=== PATIENT | male | born 1975 | race Caucasian/White ===

== ENCOUNTER 2024-03-28 16:41 | Inpatient (IN) | payer OTHER ==
[2024-03-28 17:36] VITALS: BMI 28.7
[2024-03-28] MEDS ORDERED: ONDANSETRON *ODT* 4 MG TABLET SL PRN (20:02)
[2024-03-28] MEDS ORDERED: POLYETHYLENE GLYCOL (HEALTHYLAX) 3350 17 GM PACKET PO PRN (20:02)
[2024-03-28] MEDS ORDERED: NALOXONE (NARCAN) HCL 4 MG/0.1 ML SPRAY NS PRN (20:02)
[2024-03-28] MEDS ORDERED: DICYCLOMINE HCL 10 MG CAPSULE PO PRN (20:02)
[2024-03-28] MEDS ORDERED: guaiFENesin 600 MG TABLET.ER (FP) PO PRN (20:02)
[2024-03-28] MEDS ORDERED: BENZONATATE 200 MG CAPSULE PO PRN (20:02)
[2024-03-28] MEDS ORDERED: BISMUTH SUBSALICYLATE 524 MG/30 ML PO PRN (20:02)
[2024-03-28] MEDS ORDERED: BENZOCAINE/MENTHOL (CHLORASEPTIC ) LOZENGE MM PRN (20:02)
[2024-03-28] MEDS ORDERED: MAG HYDROX/AL HYDROX/SIMETH 30 ML UNIT-DOSE CUP PO PRN (20:02)
[2024-03-28] MEDS ORDERED: NALOXONE HCL 0.4 MG/ML VIAL IM PRN (20:02)
[2024-03-28] MEDS ORDERED: ACETAMINOPHEN 325 MG TABLET (FP) PO PRN (20:02)
[2024-03-28] MEDS ORDERED: MAGNESIUM HYDROX 2400MG/30ML ORAL SUSPENSION 30 ML CUP PO PRN (20:02)
[2024-03-28] MEDS ORDERED: IBUPROFEN 400 MG TABLET (FP) PO PRN (20:02)
[2024-03-28] MEDS: diazePAM 5 MG TABLET PO SCH (21:19)
[2024-03-28] MEDS: methaDONE HCL 10 MG TABLET PO ONE (21:48)
[2024-03-28] MEDS: THIAMINE 100 MG TABLET PO SCH (22:33)
[2024-03-28] MEDS: MELATONIN 5 MG TABLETS PO SCH (22:33)
[2024-03-29] MEDS ORDERED: methaDONE HCL 10 MG TABLET (FOR DETOX USE ONLY) PO ONE (10:00)
[2024-03-29] MEDS: methaDONE 40 MG, methaDONE 10 MG PO ONE (10:01)
[2024-03-29] MEDS: PRENATAL VITAMINS W/ FOLIC ACID TABLET (FP) PO SCH (10:02)
[2024-03-29] MEDS: METHOCARBAMOL 500 MG TABLET PO PRN (10:06)
[2024-03-29 10:43] LABS: HEMATOCRIT 33.9 % (35.4-49); HEMOGLOBIN 11.7 GM/dL (11.7-16.9); MCHC 34.5 g/dl (32.0-35.9); MEAN CELL VOLUME 95.5 fl (80-96); PLATELET COUNT 264 10^3/uL (134-434); RBC 3.56 M/mm3 (4.00-5.60); RDW 13.9 % (11.9-15.9); WHITE BLOOD COUNT 5.9 K/mm3 (4.0-10.0)
[2024-03-29 10:45] LABS: CHLORIDE 108 mmol/L (98-107); POTASSIUM 3.6 mmol/L (3.5-5.1); SODIUM 143 mmol/L (136-145)
[2024-03-29 10:49] LABS: CALCIUM 8.2 mg/dL (8.5-10.1)
[2024-03-29 10:51] LABS: ALBUMIN 2.6 g/dl (3.4-5.0); ANION GAP 4 mmol/L (4-13); BLOOD UREA NITROGEN 14.5 mg/dL (7-18); CO2 31 mmol/L (21-32); GLUCOSE,RANDOM 85 mg/dL (74-106)
[2024-03-29 10:52] LABS: SGPT/ALT 13 U/L (13-61)
[2024-03-29 10:54] LABS: CREATININE 0.8 mg/dL (0.55-1.3)
[2024-03-29 10:55] LABS: TOT PROT 6.3 g/dl (6.4-8.2)
[2024-03-29 10:56] LABS: ALK PHOS 59 U/L (45-117)
[2024-03-29 10:58] LABS: BILIRUBIN,TOTAL 0.2 mg/dL (0.2-1)
[2024-03-29 11:03] LABS: SGOT/AST 12 U/L (15-37)
[2024-03-29] MEDS: LACTULOSE 20 GM/30 ML UDC (FOR ORAL USE ONLY) PO SCH (15:51)
[2024-03-29] MEDS: IBUPROFEN 600 MG TABLET (FP) PO PRN (22:05)
[2024-03-30] MEDS: diazePAM 5 MG TABLET PO SCH (06:19)
[2024-03-30] MEDS: methaDONE 40 MG, methaDONE 20 MG PO ONE (09:29)
[2024-03-30] MEDS: diazePAM 5 MG TABLET PO PRN (09:30)
[2024-03-30] MEDS: LOPERAMIDE HCL 2 MG CAPSULE PO PRN (09:30)
[2024-03-30] MEDS ORDERED: methaDONE HCL 10 MG TABLET (FOR DETOX USE ONLY) PO ONE (10:00)
[2024-03-30] MEDS: hydrOXYzine PAMOATE 25 MG CAPSULE (FP) PO PRN (22:40)
[2024-03-31] MEDS: diazePAM 5 MG TABLET PO SCH (06:00)
[2024-03-31] MEDS: methaDONE 40 MG, methaDONE 30 MG PO ONE (09:09)
[2024-03-31] MEDS ORDERED: methaDONE HCL 10 MG TABLET (FOR DETOX USE ONLY) PO ONE (10:00)
[2024-03-31 12:44] VITALS: RESP 18
[2024-04-01] MEDS: diazePAM 5 MG TABLET PO ONE (06:02)
[2024-04-01 08:23] LABS: URINE APPEARANCE CLEAR; URINE BILIRUBIN NEGATIVE (NEGATIVE); URINE COLOR YELLOW; URINE GLUCOSE (UA) NEGATIVE (NEGATIVE); URINE KETONE TRACE (NEGATIVE); URINE LEUK ESTERASE NEGATIVE (NEGATIVE); URINE NITRITE NEGATIVE (NEGATIVE); URINE PROTEIN NEGATIVE (NEGATIVE); URINE UROBILINOGEN 0.2 mg/dL (0.2-1.0)
[2024-04-01 08:50] VITALS: BP 119/80; PULSE 56; TEMP 98
[2024-04-01] MEDS: methaDONE HCL 40 MG DISPERSABLE TABLET PO ONE (09:57)
== END 2024-04-01 11:28 | disposition home or self-care (01) | DRG 773 ==
LOC: YASAS 16:41 → Y3N 20:24
PROVIDERS: ADMIT Allergy & Immunology; ATTEND Surgery
PROC: HZ2ZZZZ Detoxification Services for Substance Abuse Treatment (ICD-10-PCS; principal; 2024-03-28)
DX: F11.23 Opioid dependence with withdrawal (principal); F10.230 Alcohol dependence with withdrawal, uncomplicated; F13.20 Sedative, hypnotic or anxiolytic dependence, uncomplicated; F14.20 Cocaine dependence, uncomplicated; F31.9 Bipolar disorder, unspecified; F41.0 Panic disorder [episodic paroxysmal anxiety]; F32.A Depression, unspecified; R79.89 Other specified abnormal findings of blood chemistry
CPT/HCPCS: 36415; 80053; 80305; 80307; 81003; 82140; 85027; 86780; 93005; 93010